=== PATIENT | female | born 1940 | race Hispanic/Latino ===

== ENCOUNTER → 2024-09-18 | Outpatient (REF) | payer MEDICARE ==
[~2024-09-18] MED LIST: REGADENOSON 0.4 MG/5 ML SYR IV ONE
== END ==
LOC: NM 08:13
PROVIDERS: ATTEND Internal Medicine Cardiovascular Disease
DX: R07.9 Chest pain, unspecified (principal)
CPT/HCPCS: 78452; 93017; A9502; J2785